=== PATIENT | female | born 1975 | race Caucasian/White ===

== ENCOUNTER 2017-10-05 09:45 | Emergency (ER) | payer BC ==
--- NOTE | 2017-10-05 11:10 | EDM.PDOC ---
ED HPI GENERAL MEDICAL PROBLEM - General Chief Complaint: Chest Pain Stated Complaint: CHEST PAIN Time Seen by Provider: 10/05/17 09:45 Source of Information: Reports: Patient, Family History Limitations: Reports: No Limitations - History of Present Illness INITIAL COMMENTS - FREE TEXT/NARRATIVE: 42 y.o.w.f with H/O intermittent SVT, DM, GERD, Obesity and Depression, came to the ed after she was treated at the clinic for her SVT. 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 Her palpitations subsided. No N /V/D or any other acute medical Issues. Pt converts to SVT twice a month, recently. No other acute medical issues at this time. BP 122/83 Pulse ox 99 % on RA, RR 20 Temp 36.8 PE: WNWD W F C/O minor CP 4/10 No N/V/ no diaphoresis CXR: Onset: Today Onset Date: 10/05/17 Onset Time: 07:00 Duration: Hour(s):, Intermittent Location: Reports: Chest Quality: Reports: Ache Severity: Mild Improves with: Reports: Medication (adenosin) Worsens with: Reports: None Treatments SPEECH COMMUNICATION PROFESSOR: Reports: EKG, Other Medication(s) Midsternal chest Pain Score (Numeric/FACES): 2 - Related Data Allergies Allergy/AdvReac Type Severity Reaction Status Date / Time latex Allergy Rash Verified 10/06/17 16:41 Home Meds: Home Meds FLUoxetine [PROzac] 10 mg PO DAILY 10/05/17 [History] Liraglutide [Victoza] 1.8 units SQ DAILY 10/05/17 [History] Metoprolol Succinate [Toprol XL] 25 mg PO DAILY #7 tab.er 10/05/17 [Rx] Omeprazole [Omeprazole] 20 mg DAILY 10/05/17 [History] Past Medical History Cardiovascular History: Reports: Arrhythmia Gastrointestinal History: Reports: None Genitourinary History: Reports: None 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: Musculoskeletal History: Reports: None Psychiatric History: Reports: Depression Endocrine/Metabolic History: Reports: Diabetes, Type II, Obesity/BMI 30+ - Infectious Disease History Infectious Disease History: Reports: Chicken Pox - Past Surgical History HEENT Surgical History: Reports: Adenoidectomy, Tonsillectomy GI Surgical History: Reports: None Female Surgical History: Reports: Hysterectomy, Other (See Below) Other Female Surgeries/Procedures: ablasion Musculoskeletal Surgical History: Reports: Carpal Tunnel Other Musculoskeletal Surgeries/Procedures:: bilat carpal tunnel Social & Family History - Family History Family Medical History: Noncontributory - Tobacco Use Smoking Status *Q: Current Every Day Smoker Years of Tobacco use: 30 Packs/Tins Daily: 1 - Caffeine Use Caffeine Use: Reports: None - Recreational Drug Use Recreational Drug Use: No ED ROS GENERAL - Review of Systems Review Of Systems: See Below Constitutional: Reports: No Symptoms HEENT: Reports: No Symptoms Respiratory: Reports: No Symptoms Cardiovascular: Reports: Palpitations Endocrine: Reports: No Symptoms GI/Abdominal: Reports: No Symptoms : Reports: No Symptoms Musculoskeletal: Reports: No Symptoms Skin: Reports: No Symptoms Neurological: Reports: No Symptoms Psychiatric: Reports: No Symptoms Hematologic/Lymphatic: Reports: No Symptoms Immunologic: Reports: No Symptoms ED EXAM, GENERAL - Physical Exam Exam: See Below Exam Limited By: No Limitations General Appearance: Alert, WD/WN, No Apparent Distress Eye Exam: Bilateral Eye: Normal Inspection Ears: Normal External Exam Ear Exam: Bilateral Ear: Auricle Normal Nose: Normal Inspection, Normal Mucosa Throat/Mouth: Normal Inspection, Normal Lips, Normal Teeth Head: Atraumatic, Normocephalic Neck: Normal Inspection, Supple, Non-Tender Respiratory/Chest: No Respiratory Distress Cardiovascular: Tachycardia (resolved SPEECH COMMUNICATION PROFESSOR) Peripheral Pulses: 1+: Brachial (L) GI/Abdominal: Normal Bowel Sounds, Soft, Non-Tender, No Organomegaly, No Distention, No Abnormal Bruit, No Mass, Pelvis Stable (Female) Exam: Deferred Rectal (Female) Exam: Deferred Back Exam: Normal Inspection, Full Range of Motion Extremities: Normal Inspection, Normal Range of Motion, Non-Tender, No Pedal Edema Neurological: Alert, Oriented, CN II-XII Intact, Normal Cognition, Normal Gait Psychiatric: Normal Affect Skin Exam: Warm, Dry, Intact, Normal Color, No Rash Lymphatic: No Adenopathy EKG INTERPRETATION EKG Date: 10/05/17 Time: 09:50 Rhythm: NSR Rate (Beats/Min): 99 [place]: Normal P-Wave: Present QRS: Normal ST-T: Normal QT: Normal Comparison: NA - No Prior EKG Course - Vital Signs Text/Narrative:: 42 y.o.w.f with H/O intermittent SVT, DM, GERD, Obesity and Depression, came to the ed after she was treated at the clinic for her SVT. 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 Her palpitations subsided. No N /V/D or any other acute medical Issues. Pt converts to SVT twice a month, recently. No other acute medical issues at this time. BP 122/83 Pulse ox 99 % on RA, RR 20 Temp 36.8 PE: Obese 42 y.o.w. f. in NAD Labs: CBC, BMP trop, nl Impression: Palpitations due to Paroxysmal SVT 11.[address] King. 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 Tx: Toprol 25mg XL deu to pts; borderline loiw BP. Reexam: improved. Plan: D/C with instructions Last Recorded V/S: Last Vital Signs Temp 36.8 C 10/05/17 09:45 Pulse 83 10/05/17 12:10 Resp 20 10/05/17 09:45 BP 106/77 10/05/17 12:10 Pulse Ox 99 10/05/17 09:45 - Orders/Labs/Meds Labs: Laboratory Tests 10/05/17 10/05/17 10/05/17 Range/Units 09:55 09:55 09:55 WBC 10.2 (4.5-12.0) X10-3/uL RBC 5.40 H (3.23-5.20) x10(6)uL Hgb 15.7 H (11.5-15.5) g/dL Hct 47.0 (30.0-51.3) % MCV 87.1 (80-96) fL MCH 29.1 (27.7-33.6) pg MCHC 33.5 (32.2-35.4) g/dL RDW 13.3 (11.5-15.5) % Plt Count 222 (125-369) X10(3)uL MPV 9.7 (7.4-10.4) fL Neut % (Auto) 74.4 (46-82) % Lymph % (Auto) 18.8 (13-37) % [place] % (Auto) 4.8 (4-12) % Eos % (Auto) 1 (1.0-5.0) % Baso % (Auto) 1 (0-2) % Neut # (Auto) 7.6 (1.6-8.3) # Lymph # (Auto) 1.9 (0.6-5.0) # [place] # (Auto) 0.5 (0.0-1.3) # Eos # (Auto) 0.1 (0.0-0.8) # Baso # (Auto) 0.1 (0.0-0.2) # PT 10.1 (8.7-11.1) INR 1.00 (0.89-1.13) Sodium 135 (135-145) mmol/L Potassium 5.1 (3.5-5.3) mmol/L Chloride 101 (100-110) mmol/L Carbon Dioxide 27 (21-32) mmol/L BUN 14 (7-18) mg/dL Creatinine 1.0 (0.55-1.02) mg/dL Est Cr Clr Drug Dosing 64.60 mL/min Estimated GFR (MDRD) > 60 (>60) BUN/Creatinine Ratio 14.0 (9-20) Glucose 332 H (80-116) mg/dL Calcium 9.2 (8.6-10.2) mg/dL Magnesium 1.9 (1.8-2.5) mg/dL Creatine Kinase 59 L (60-160) IU/L Troponin I (<0.017-0.056) ng/mL TSH, Ultra Sensitive (0.36-3.74) IU/mL 10/05/17 10/05/17 Range/Units 09:55 09:55 WBC (4.5-12.0) X10-3/uL RBC (3.23-5.20) x10(6)uL Hgb (11.5-15.5) g/dL Hct (30.0-51.3) % MCV (80-96) fL MCH (27.7-33.6) pg MCHC (32.2-35.4) g/dL RDW (11.5-15.5) % Plt Count (125-369) X10(3)uL MPV (7.4-10.4) fL Neut % (Auto) (46-82) % Lymph % (Auto) (13-37) % [place] % (Auto) (4-12) % Eos % (Auto) (1.0-5.0) % Baso % (Auto) (0-2) % Neut # (Auto) (1.6-8.3) # Lymph # (Auto) (0.6-5.0) # [place] # (Auto) (0.0-1.3) # Eos # (Auto) (0.0-0.8) # Baso # (Auto) (0.0-0.2) # PT (8.7-11.1) INR (0.89-1.13) Sodium (135-145) mmol/L Potassium (3.5-5.3) mmol/L Chloride (100-110) mmol/L Carbon Dioxide (21-32) mmol/L BUN (7-18) mg/dL Creatinine (0.55-1.02) mg/dL Est Cr Clr Drug Dosing mL/min Estimated GFR (MDRD) (>60) BUN/Creatinine Ratio (9-20) Glucose (80-116) mg/dL Calcium (8.6-10.2) mg/dL Magnesium (1.8-2.5) mg/dL Creatine Kinase (60-160) IU/L Troponin I < 0.017 L (<0.017-0.056) ng/mL TSH, Ultra Sensitive 1.80 (0.36-3.74) IU/mL Meds: Medications Discontinued Medications Generic Name Dose Route Start Last Admin Trade Name Freq PRN Reason Stop Dose Admin Aspirin 324 mg 10/05/17 11:34 10/05/17 11:15 Aspirin PO 10/05/17 11:35 324 mg ONETIME ONE Administration Metoprolol Succinate 50 mg 10/05/17 11:51 10/05/17 12:36 Toprol Xl PO 10/05/17 11:52 Not Given ONETIME ONE Metoprolol Succinate 25 mg 10/05/17 12:06 10/05/17 12:10 Toprol Xl PO 10/05/17 12:07 25 mg ONETIME ONE Administration Departure - Departure Time of Disposition: 13:11 Disposition: Home, Self-Care 01 Condition: Good Clinical Impression: History of paroxysmal supraventricular tachycardia Prescriptions: Metoprolol Succinate [Toprol XL] 25 mg PO DAILY #7 tab.er Instructions: Supraventricular Tachycardia, Adult, [id number], Metoprolol extended-release tablets Referrals: Natalie Sullivan NP [Primary Care Provider] - Forms: ED Department Discharge, ED Return to Work/School Form Additional Instructions: Please take the meds as recommended, Please F/U with an proof machine operator, Dr. King at [phone], please come back to the ED if your symptoms get worse acutely.
[2017-10-05] MEDS ORDERED: Aspirin 81 MG Tab.Chew PO ONE (11:34)
[2017-10-05] MEDS ORDERED: Metoprolol Succinate 50 MG Tab.ER PO ONE (11:51)
[2017-10-05] MEDS ORDERED: Metoprolol Succinate 25 MG Tab.ER PO ONE (12:06)
== END 2017-10-05 13:22 | disposition home or self-care (01) ==
LOC: FB.ED 09:45
DX: I47.1 Supraventricular tachycardia (principal); E11.9 Type 2 diabetes mellitus without complications; E66.9 Obesity, unspecified; F32.9 Major depressive disorder, single episode, unspecified; Z79.899 Other long term (current) drug therapy; F17.210 Nicotine dependence, cigarettes, uncomplicated; Z91.040 Latex allergy status
CPT/HCPCS: 36415; 80048; 82550; 83735; 84443; 84484; 85025; 85610; 93005; 99285; A9270

== ENCOUNTER 2017-10-06 14:43 | Emergency (ER) | payer BC ==
[2017-10-06] MEDS ORDERED: Metoprolol Succinate 25 MG Tab.ER PO ONE (15:04)
[2017-10-06] MEDS ORDERED: Aspirin 81 MG Tab.Chew PO ONE (15:04)
--- NOTE | 2017-10-06 16:17 | EDM.PDOC ---
ED HPI GENERAL MEDICAL PROBLEM - General Chief Complaint: Chest Pain Stated Complaint: CHEST PAIN Time Seen by Provider: 10/06/17 14:43 Source of Information: Reports: Patient, Family History Limitations: Reports: No Limitations - History of Present Illness INITIAL COMMENTS - FREE TEXT/NARRATIVE: 42 y.o.w.f with a h/o SVT, seen and evaluated by me yesterday, was d/c'd on Toprol 25 mg daily. Pt is on Prozac-She came to the ed this am due to mild chest discomfort 11/22. no N/V/D. Pt has NIDDM. No diaphoresis, no other acute medical issues. BP 132/72 pulse 78 RR 19 Pulse ox 98% on RA temp 36.6 Onset Date: 10/06/17 Onset Time: 08:00 Duration: Hour(s): Location: Reports: Chest Quality: Reports: Burning Severity: Mild Improves with: Reports: None Worsens with: Reports: None Associated Symptoms: Reports: No Other Symptoms Chest Pain Score (Numeric/FACES): 4 - Related Data Allergies Allergy/AdvReac Type Severity Reaction Status Date / Time latex Allergy Rash Verified 10/06/17 16:41 Home Meds: Home Meds FLUoxetine [PROzac] 10 mg PO DAILY 10/05/17 [History] Liraglutide [Victoza] 1.8 units SQ DAILY 10/05/17 [History] Metoprolol Succinate [Toprol XL] 25 mg PO DAILY #7 tab.er 10/05/17 [Rx] Omeprazole [Omeprazole] 20 mg DAILY 10/05/17 [History] Past Medical History Cardiovascular History: Reports: Arrhythmia Gastrointestinal History: Reports: None Genitourinary History: Reports: None 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: Musculoskeletal History: Reports: None Psychiatric History: Reports: Depression Endocrine/Metabolic History: Reports: Diabetes, Type II, Obesity/BMI 30+ - Infectious Disease History Infectious Disease History: Reports: Chicken Pox - Past Surgical History HEENT Surgical History: Reports: Adenoidectomy, Tonsillectomy GI Surgical History: Reports: None Female Surgical History: Reports: Hysterectomy, Other (See Below) Other Female Surgeries/Procedures: ablasion Musculoskeletal Surgical History: Reports: Carpal Tunnel Other Musculoskeletal Surgeries/Procedures:: bilat carpal tunnel Social & Family History - Family History Family Medical History: Noncontributory - Tobacco Use Smoking Status *Q: Current Every Day Smoker Years of Tobacco use: 30 Packs/Tins Daily: 1 - Caffeine Use Caffeine Use: Reports: None - Recreational Drug Use Recreational Drug Use: No ED ROS GENERAL - Review of Systems Review Of Systems: See Below Constitutional: Reports: No Symptoms HEENT: Reports: No Symptoms Respiratory: Reports: No Symptoms Cardiovascular: Reports: Chest Pain (11/22) Endocrine: Reports: Other (H/O DM) GI/Abdominal: Reports: No Symptoms : Reports: No Symptoms Musculoskeletal: Reports: No Symptoms Skin: Reports: No Symptoms Neurological: Reports: No Symptoms Psychiatric: Reports: No Symptoms Hematologic/Lymphatic: Reports: No Symptoms Immunologic: Reports: No Symptoms ED EXAM, GENERAL - Physical Exam Exam: See Below Exam Limited By: No Limitations General Appearance: Alert, WD/WN, No Apparent Distress Eye Exam: Bilateral Eye: Normal Inspection Ears: Normal External Exam Ear Exam: Bilateral Ear: Auricle Normal Nose: Normal Inspection, Normal Mucosa Throat/Mouth: Normal Inspection, Normal Lips Head: Atraumatic, Normocephalic Neck: Normal Inspection, Supple, Non-Tender Respiratory/Chest: No Respiratory Distress, Lungs Clear, Normal Breath Sounds Cardiovascular: Normal Peripheral Pulses, Regular Rate, Rhythm, No Edema GI/Abdominal: Normal Bowel Sounds, Soft, Non-Tender, No Organomegaly, No Abnormal Bruit (Female) Exam: Deferred Rectal (Female) Exam: Deferred Back Exam: Normal Inspection, Full Range of Motion Extremities: Normal Inspection, Normal Range of Motion Neurological: Alert, Oriented, CN II-XII Intact, Normal Cognition, Normal Gait Psychiatric: Normal Affect, Normal Mood Skin Exam: Warm, Dry, Intact, Normal Color, No Rash Lymphatic: No Adenopathy EKG INTERPRETATION EKG Date: 10/06/17 Time: 15:40 Rhythm: NSR Rate (Beats/Min): 72 [place]: Normal P-Wave: Present QRS: Normal ST-T: Normal QT: Normal Comparison: NA - No Prior EKG Course - Vital Signs Text/Narrative:: 42 y.o.w.f with a h/o SVT, seen and evaluated by me yesterday, was d/c'd on Toprol 25 mg daily. Pt is on Prozac-She came to the ed this am due to mild chest discomfort 11/22. no N/V/D. Pt has NIDDM. No diaphoresis, no other acute medical issues. BP 132/72 pulse 78 RR 19 Pulse ox 98% on RA temp 36.6 PE: WNWDWF, in NAD Labs: CBC, BMP Nl, Glc was 333 A1C was 8.3 Tropo 0.017 Impression: Poor diabetic control, Atypical chest pain, H/O SVT Tx: ASA Reexam: Pain subsided entirely. Pt was given 25 mg of Toprol instead of 50 mg because Prozac increases the effect of Toprol, as per pharmacy. Plan: D/C with instructions Last Recorded V/S: Last Vital Signs Temp 36.8 C 10/06/17 14:43 Pulse 78 10/06/17 14:43 Resp 18 10/06/17 14:43 BP 132/72 10/06/17 14:43 Pulse Ox 98 10/06/17 14:43 - Orders/Labs/Meds Orders: Active Orders 24 hr Category Date Time Status Chest 1V Frontal [CR] Stat Exams 10/06/17 15:04 Taken EKG 12 Lead [EK] Routine Ther 10/06/17 15:07 Ordered Labs: Laboratory Tests 10/06/17 10/06/17 10/06/17 Range/Units 15:15 15:15 15:15 WBC 9.3 (4.5-12.0) X10-3/uL RBC 5.01 (3.23-5.20) x10(6)uL Hgb 14.4 (11.5-15.5) g/dL Hct 43.9 (30.0-51.3) % MCV 87.5 (80-96) fL MCH 28.8 (27.7-33.6) pg MCHC 32.9 (32.2-35.4) g/dL RDW 13.4 (11.5-15.5) % Plt Count 215 (125-369) X10(3)uL MPV 9.2 (7.4-10.4) fL Neut % (Auto) 67.6 (46-82) % Lymph % (Auto) 25.0 (13-37) % [place] % (Auto) 5.6 (4-12) % Eos % (Auto) 1 (1.0-5.0) % Baso % (Auto) 1 (0-2) % Neut # (Auto) 6.3 (1.6-8.3) # Lymph # (Auto) 2.3 (0.6-5.0) # [place] # (Auto) 0.5 (0.0-1.3) # Eos # (Auto) 0.1 (0.0-0.8) # Baso # (Auto) 0.1 (0.0-0.2) # PT 10.0 (8.7-11.1) INR 0.99 (0.89-1.13) D-Dimer, Quantitative < 100 L (100-400) ng/mL Sodium (135-145) mmol/L Potassium (3.5-5.3) mmol/L Chloride (100-110) mmol/L Carbon Dioxide (21-32) mmol/L BUN (7-18) mg/dL Creatinine (0.55-1.02) mg/dL Est Cr Clr Drug Dosing Estimated GFR (MDRD) (>60) BUN/Creatinine Ratio (9-20) Glucose (80-116) mg/dL Hemoglobin A1c (4.5-6.2) % Calcium (8.6-10.2) mg/dL Troponin I (<0.017-0.056) ng/mL Urine Color (YELLOW) Urine Appearance (CLEAR) Urine pH (5.0-6.5) Ur Specific [place] (1.010-1.025) Urine Protein (NEGATIVE) mg/dL Urine Glucose (UA) (NEGATIVE) mg/dL Urine Ketones (NEGATIVE) mg/dL Urine Occult Blood (NEGATIVE) Urine Nitrite (NEGATIVE) Urine Bilirubin (NEGATIVE) Urine Urobilinogen (NEGATIVE) mg/dL Ur Leukocyte Esterase (NEGATIVE) Urine RBC (0) Urine WBC (0) Ur Squamous Epith Cells (NS,R,O) Urine Bacteria (NS) 10/06/17 10/06/17 10/06/17 Range/Units 15:15 15:15 15:15 WBC (4.5-12.0) X10-3/uL RBC (3.23-5.20) x10(6)uL Hgb (11.5-15.5) g/dL Hct (30.0-51.3) % MCV (80-96) fL MCH (27.7-33.6) pg MCHC (32.2-35.4) g/dL RDW (11.5-15.5) % Plt Count (125-369) X10(3)uL MPV (7.4-10.4) fL Neut % (Auto) (46-82) % Lymph % (Auto) (13-37) % [place] % (Auto) (4-12) % Eos % (Auto) (1.0-5.0) % Baso % (Auto) (0-2) % Neut # (Auto) (1.6-8.3) # Lymph # (Auto) (0.6-5.0) # [place] # (Auto) (0.0-1.3) # Eos # (Auto) (0.0-0.8) # Baso # (Auto) (0.0-0.2) # PT (8.7-11.1) INR (0.89-1.13) D-Dimer, Quantitative (100-400) ng/mL Sodium 135 (135-145) mmol/L Potassium 4.6 (3.5-5.3) mmol/L Chloride 101 (100-110) mmol/L Carbon Dioxide 29 (21-32) mmol/L BUN 15 (7-18) mg/dL Creatinine 1.0 (0.55-1.02) mg/dL Est Cr Clr Drug Dosing TNP Estimated GFR (MDRD) > 60 (>60) BUN/Creatinine Ratio 15.0 (9-20) Glucose 239 H D (80-116) mg/dL Hemoglobin A1c 8.3 H (4.5-6.2) % Calcium 9.3 (8.6-10.2) mg/dL Troponin I < 0.017 L (<0.017-0.056) ng/mL Urine Color (YELLOW) Urine Appearance (CLEAR) Urine pH (5.0-6.5) Ur Specific [place] (1.010-1.025) Urine Protein (NEGATIVE) mg/dL Urine Glucose (UA) (NEGATIVE) mg/dL Urine Ketones (NEGATIVE) mg/dL Urine Occult Blood (NEGATIVE) Urine Nitrite (NEGATIVE) Urine Bilirubin (NEGATIVE) Urine Urobilinogen (NEGATIVE) mg/dL Ur Leukocyte Esterase (NEGATIVE) Urine RBC (0) Urine WBC (0) Ur Squamous Epith Cells (NS,R,O) Urine Bacteria (NS) 10/06/17 Range/Units 16:49 WBC (4.5-12.0) X10-3/uL RBC (3.23-5.20) x10(6)uL Hgb (11.5-15.5) g/dL Hct (30.0-51.3) % MCV (80-96) fL MCH (27.7-33.6) pg MCHC (32.2-35.4) g/dL RDW (11.5-15.5) % Plt Count (125-369) X10(3)uL MPV (7.4-10.4) fL Neut % (Auto) (46-82) % Lymph % (Auto) (13-37) % [place] % (Auto) (4-12) % Eos % (Auto) (1.0-5.0) % Baso % (Auto) (0-2) % Neut # (Auto) (1.6-8.3) # Lymph # (Auto) (0.6-5.0) # [place] # (Auto) (0.0-1.3) # Eos # (Auto) (0.0-0.8) # Baso # (Auto) (0.0-0.2) # PT (8.7-11.1) INR (0.89-1.13) D-Dimer, Quantitative (100-400) ng/mL Sodium (135-145) mmol/L Potassium (3.5-5.3) mmol/L Chloride (100-110) mmol/L Carbon Dioxide (21-32) mmol/L BUN (7-18) mg/dL Creatinine (0.55-1.02) mg/dL Est Cr Clr Drug Dosing Estimated GFR (MDRD) (>60) BUN/Creatinine Ratio (9-20) Glucose (80-116) mg/dL Hemoglobin A1c (4.5-6.2) % Calcium (8.6-10.2) mg/dL Troponin I (<0.017-0.056) ng/mL Urine Color Yellow (YELLOW) Urine Appearance Clear (CLEAR) Urine pH 5.0 (5.0-6.5) Ur Specific [place] 1.020 (1.010-1.025) Urine Protein Negative (NEGATIVE) mg/dL Urine Glucose (UA) Normal (NEGATIVE) mg/dL Urine Ketones Negative (NEGATIVE) mg/dL Urine Occult Blood Negative (NEGATIVE) Urine Nitrite Negative (NEGATIVE) Urine Bilirubin Negative (NEGATIVE) Urine Urobilinogen Normal (NEGATIVE) mg/dL Ur Leukocyte Esterase Negative (NEGATIVE) Urine RBC 0-5 (0) Urine WBC 0-5 (0) Ur Squamous Epith Cells Moderate H (NS,R,O) Urine Bacteria Moderate H (NS) Meds: Medications Discontinued Medications Generic Name Dose Route Start Last Admin Trade Name Rashard PRN Reason Stop Dose Admin Aspirin 324 mg 10/06/17 15:04 10/06/17 15:12 Aspirin PO 10/06/17 15:05 324 mg ONETIME ONE Administration Metoprolol Succinate 25 mg 10/06/17 15:04 10/06/17 15:48 Toprol Xl PO 10/06/17 15:05 Not Given ONETIME ONE Departure - Departure Time of Disposition: 16:15 Disposition: Home, Self-Care 01 Condition: Good Clinical Impression: Atypical chest pain, Diabetes, Elevated hemoglobin A1c measurement Instructions: Nonspecific Chest Pain, [id number] Referrals: Natalie Sullivan NP [Primary Care Provider] - Forms: ED Department Discharge Additional Instructions: Please cont your meds, please follow up with your regular MD/Manager Cash/ manager in training as recommended, please come back if your symptoms get worse acutely - My Orders Last 24 Hours: My Active Orders 10/06/17 15:04 Chest 1V Frontal [CR] Stat 10/06/17 15:07 EKG 12 Lead [EK] Routine - Assessment/Plan Last 24 Hours: My Active Orders 10/06/17 15:04 Chest 1V Frontal [CR] Stat 10/06/17 15:07 EKG 12 Lead [EK] Routine
--- NOTE | 2017-10-07 13:00 | CR ---
INDICATION: Chest pain. CHEST: A single AP upright portable view of the chest was obtained. The heart did not appear enlarged, allowing for the relatively poor inspiration and AP positioning. Evidence of exogenous obesity is noted. The left breast is not well visualized. An active infiltrate or effusion was not identified. Overlying EKG leads are noted. IMPRESSION: No definite acute process. MTDD
== END 2017-10-06 16:53 | disposition home or self-care (01) ==
LOC: FB.ED 14:43
DX: R07.89 Other chest pain (principal); E11.65 Type 2 diabetes mellitus with hyperglycemia; F17.210 Nicotine dependence, cigarettes, uncomplicated; Z91.040 Latex allergy status; Z79.899 Other long term (current) drug therapy; Z86.79 Personal history of other diseases of the circulatory system
CPT/HCPCS: 36415; 71045; 80048; 81001; 83036; 84484; 85025; 85379; 85610; 93005; 99285; A9270

== ENCOUNTER 2017-11-05 20:36 | Emergency (ER) | payer BC ==
[2017-11-05] MEDS ORDERED: Cyclobenzaprine 10 MG Tab PO ONE (20:58)
[2017-11-05] MEDS ORDERED: traMADol 50 MG Tab PO ONE (21:06)
--- NOTE | 2017-11-05 21:36 | ER ---
DATE SEEN: 11/05/2017 CHIEF COMPLAINT: Pain jaw. HISTORY OF PRESENT ILLNESS: This is a 42-year-old complaining of pain in the left jaw. The pain is moderate to severe, started this morning insidiously and it is a sharp lancinating pain that sends shocks down to the head and to the teeth. It was made worse with any chewing or swallowing and there is no visual disturbance or headache. PAST MEDICAL HISTORY: Anxiety, atypical chest pain, SVT. SOCIAL HISTORY: Noncontributory. CURRENT MEDICATIONS: Reviewed. PHYSICAL EXAMINATION: VITAL SIGNS: Blood pressure is normal. Pulse is 97 and oxygenation 99%. EARS, NOSE, and THROAT: Negative. HEAD: Normal size. There is tenderness in the left TMJ and left sabianist. CARDIOVASCULAR: Normal. NECK: Supple. IMPRESSION: Trigeminal neuralgia. PLAN: Hydrocodone one tablet t.i.d. p.r.n. and Flexeril 10 mg at bedtime. Differential diagnosis, TMJ dysfunction. Follow up Tuesday with PCP. Return to the ED with worsening symptoms. TIME SEEN: 2044 hours. /[id number] JAVIER/PRINCEL
== END 2017-11-05 21:05 | disposition home or self-care (01) ==
LOC: FB.ED 20:36
DX: G50.0 Trigeminal neuralgia (principal)
CPT/HCPCS: 99283; A9270-GY

== ENCOUNTER 2018-01-18 10:42 | Emergency (ER) | payer BC ==
[2018-01-18] MEDS: Sodium Chloride 0.9% 10 ML Syringe FLUSH PRN (11:40)
[2018-01-18] MEDS: Sodium Chloride 0.9% 1,000 ML IV ONE (11:45)
--- NOTE | 2018-01-18 11:59 | EDM.PDOC ---
ED HPI GENERAL MEDICAL PROBLEM - General Chief Complaint: Cardiovascular Problem Stated Complaint: HEART Time Seen by Provider: 01/18/18 10:45 Source of Information: Reports: Patient History Limitations: Reports: No Limitations - History of Present Illness INITIAL COMMENTS - FREE TEXT/NARRATIVE: c/o palpitations pt with HR [address] Bloom's office 10/30, dx with SVT, given IV med in office and "my heart stopped and restarted," begun on metoprolol which "makes me very tired," takes 25 mg qhs, still feels tired when she takes it still having palpitations, mainly at night, of a few minutes duration, had lasted up to 2h prior to beginning metoprolol and had an episode of 6-7h before being given adenosine 10/30 did not sleep well last, up to let out dogs and to use bathroom, only had 4h of sleep up at 6a to go to work at [employer], sitting at her desk at 9a when she had palpitations, lightheaded, no CP, unable to feel her pulse, after 1h she coughing on arriving at ED and it went away begun on Alicia-D and no atbx 2d ago for sinus congestion, still have green nasal d/c 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, not seen funeral limousine driver previously smokes 1 ppd, h/o DM x 5y, A1C 7.1 from 5d ago 4m ago labs were neg for CBC, BMP, INR, D-dimer, TSH, trop, CxR 1v EKG today with SR 79 and IVCD with QRS 115, no ST change, unchanged from previous - Related Data Allergies Allergy/AdvReac Type Severity Reaction Status Date / Time latex Allergy Rash Verified 01/18/18 11:15 Home Meds: Home Meds FLUoxetine [PROzac] 10 mg PO DAILY 10/05/17 [History] Liraglutide [Victoza] 1.8 units SQ DAILY 10/05/17 [History] Metoprolol Succinate [Toprol XL] 25 mg PO DAILY #7 tab.er 10/05/17 [Rx] Omeprazole 20 mg DAILY 10/05/17 [History] Amoxicillin 500 mg PO TID #21 tab 01/18/18 [Rx] Loratadine 10 mg PO DAILY #30 tablet 01/18/18 [Rx] carBAMazepine [Carbamazepine] 200 mg PO BID 01/18/18 [History] glipiZIDE [Glipizide ER] 5 mg PO DAILY 01/18/18 [History] predniSONE 20 mg PO DAILY #9 tab 01/18/18 [Rx] Past Medical History Cardiovascular History: Reports: Arrhythmia Gastrointestinal History: Reports: None Genitourinary History: Reports: None [facility] History: Reports: Musculoskeletal History: Reports: None Psychiatric History: Reports: Depression Endocrine/Metabolic History: Reports: Diabetes, Type II, Obesity/BMI 30+ - Infectious Disease History Infectious Disease History: Reports: Chicken Pox - Past Surgical History HEENT Surgical History: Reports: Adenoidectomy, Tonsillectomy GI Surgical History: Reports: None Female Surgical History: Reports: Hysterectomy, Other (See Below) Other Female Surgeries/Procedures: ablasion Musculoskeletal Surgical History: Reports: Carpal Tunnel, Other (See Below) Other Musculoskeletal Surgeries/Procedures:: bilat carpal tunnel Social & Family History - Family History Family Medical History: Noncontributory - Caffeine Use Caffeine Use: Reports: None ED ROS GENERAL - Review of Systems Review Of Systems: See Below Constitutional: Reports: No Symptoms HEENT: Reports: No Symptoms Respiratory: Reports: No Symptoms. Denies: Shortness of Breath Cardiovascular: Reports: Lightheadedness, Palpitations. Denies: Chest Pain Endocrine: Reports: No Symptoms GI/Abdominal: Reports: No Symptoms : Reports: No Symptoms Musculoskeletal: Reports: No Symptoms Skin: Reports: No Symptoms Neurological: Reports: No Symptoms Psychiatric: Reports: No Symptoms Hematologic/Lymphatic: Reports: No Symptoms Immunologic: Reports: No Symptoms ED EXAM, GENERAL - Physical Exam Exam: See Below Exam Limited By: No Limitations General Appearance: Alert, WD/WN, No Apparent Distress, Other (alert, somewhat fatigued, nontoxic, cooperative) Eye Exam: Bilateral Eye: Normal Inspection Ears: Normal External Exam, Hearing Grossly Normal Nose: Normal Inspection, Normal Mucosa, No Blood, Other (no swell, no d/c) Throat/Mouth: Normal Inspection, Normal Lips, Normal Teeth, Normal Gums, Normal Oropharynx, Normal Voice, No Airway Compromise Head: Atraumatic, Normocephalic Neck: Normal Inspection, Supple, Non-Tender, Full Range of Motion Respiratory/Chest: No Respiratory Distress, Lungs Clear, Normal Breath Sounds, No Accessory Muscle Use, Chest Non-Tender Cardiovascular: Regular Rate, Rhythm, No Edema, No Gallop, No JVD, No Murmur, No Rub GI/Abdominal: Soft, Non-Tender, No Distention, Other (obese) Back Exam: Normal Inspection, Full Range of Motion, NT Extremities: Normal Inspection, Normal Range of Motion, Non-Tender, No Pedal Edema Neurological: Alert, Oriented, CN II-XII Intact, Normal Cognition, No Motor/ Sensory Deficits Psychiatric: Normal Affect Skin Exam: Warm, Dry, Intact, Normal Color, No Rash Lymphatic: No Adenopathy Course - Vital Signs Last Recorded V/S: Last Vital Signs Temp Pulse 89 01/18/18 10:45 Resp 20 01/18/18 10:45 BP 104/59 L 01/18/18 10:45 Pulse Ox 98 01/18/18 10:45 - Orders/Labs/Meds Orders: Active Orders 24 hr Category Date Time Status URINALYSIS W/MICROSCOPIC [UA W/MICROSCOPIC] [URIN] Stat Lab 01/18/18 11:25 Ordered Sodium Chloride 0.9% [Saline Flush] Med 01/18/18 11:54 Active 10 ml FLUSH ASDIRECTED PRN Peripheral IV Insertion Adult [OM.PC] Routine Oth 01/18/18 11:40 Ordered EKG 12 Lead [EK] Routine Ther 01/18/18 11:15 Ordered Medication Orders Sodium Chloride (Saline Flush) 10 ml FLUSH ASDIRECTED PRN PRN Reason: Keep Vein Open Last Admin: 01/18/18 11:40 Dose: 10 ml Labs: Laboratory Tests 01/18/18 01/18/18 01/18/18 Range/Units 11:25 11:30 11:30 WBC 10.0 (4.5-12.0) X10-3/uL RBC 5.03 (3.23-5.20) x10(6)uL Hgb 15.5 (11.5-15.5) g/dL Hct 45.7 (30.0-51.3) % MCV 90.7 (80-96) fL MCH 30.7 (27.7-33.6) pg MCHC 33.9 (32.2-35.4) g/dL RDW 13.5 (11.5-15.5) % Plt Count 192 (125-369) X10(3)uL MPV 9.2 (7.4-10.4) fL Neut % (Auto) 76.0 (46-82) % Lymph % (Auto) 18.1 (13-37) % [place] % (Auto) 4.1 (4-12) % Eos % (Auto) 1 (1.0-5.0) % Baso % (Auto) 1 (0-2) % Neut # (Auto) 7.6 (1.6-8.3) # Lymph # (Auto) 1.8 (0.6-5.0) # [place] # (Auto) 0.4 (0.0-1.3) # Eos # (Auto) 0.1 (0.0-0.8) # Baso # (Auto) 0.1 (0.0-0.2) # Sodium 138 (135-145) mmol/L Potassium 4.2 (3.5-5.3) mmol/L Chloride 101 (100-110) mmol/L Carbon Dioxide 30 (21-32) mmol/L BUN 10 (7-18) mg/dL Creatinine 0.8 (0.55-1.02) mg/dL Est Cr Clr Drug Dosing 87.27 mL/min Estimated GFR (MDRD) > 60 (>60) BUN/Creatinine Ratio 12.5 (9-20) Glucose 189 H (80-116) mg/dL Calcium 9.0 (8.6-10.2) mg/dL Total Bilirubin 0.3 (0.1-1.3) mg/dL AST 19 (5-25) IU/L ALT 37 H (12-36) U/L Alkaline Phosphatase 69 (56-112) IU/L Troponin I (<0.017-0.056) ng/mL C-Reactive Protein (0.5-0.9) mg/dL NT-Pro-B Natriuret Pep (<=125) pg/mL Total Protein 7.6 (6.0-8.0) g/dL Albumin 3.8 (3.5-5.2) g/dL Globulin 3.8 g/dL Albumin/Globulin Ratio 1.0 Urine Color Yellow (YELLOW) Urine Appearance Slightly cloudy (CLEAR) Urine pH 6.0 (5.0-6.5) Ur Specific [place] 1.015 (1.010-1.025) Urine Protein Negative (NEGATIVE) mg/dL Urine Glucose (UA) Normal (NEGATIVE) mg/dL Urine Ketones Negative (NEGATIVE) mg/dL Urine Occult Blood Negative (NEGATIVE) Urine Nitrite Negative (NEGATIVE) Urine Bilirubin Negative (NEGATIVE) Urine Urobilinogen Normal (NEGATIVE) mg/dL Ur Leukocyte Esterase Negative (NEGATIVE) Urine WBC 0-5 (0) Ur Squamous Epith Cells Few H (NS,R,O) Urine Bacteria Few H (NS) 01/18/18 Range/Units 11:30 WBC (4.5-12.0) X10-3/uL RBC (3.23-5.20) x10(6)uL Hgb (11.5-15.5) g/dL Hct (30.0-51.3) % MCV (80-96) fL MCH (27.7-33.6) pg MCHC (32.2-35.4) g/dL RDW (11.5-15.5) % Plt Count (125-369) X10(3)uL MPV (7.4-10.4) fL Neut % (Auto) (46-82) % Lymph % (Auto) (13-37) % [place] % (Auto) (4-12) % Eos % (Auto) (1.0-5.0) % Baso % (Auto) (0-2) % Neut # (Auto) (1.6-8.3) # Lymph # (Auto) (0.6-5.0) # [place] # (Auto) (0.0-1.3) # Eos # (Auto) (0.0-0.8) # Baso # (Auto) (0.0-0.2) # Sodium (135-145) mmol/L Potassium (3.5-5.3) mmol/L Chloride (100-110) mmol/L Carbon Dioxide (21-32) mmol/L BUN (7-18) mg/dL Creatinine (0.55-1.02) mg/dL Est Cr Clr Drug Dosing mL/min Estimated GFR (MDRD) (>60) BUN/Creatinine Ratio (9-20) Glucose (80-116) mg/dL Calcium (8.6-10.2) mg/dL Total Bilirubin (0.1-1.3) mg/dL AST (5-25) IU/L ALT (12-36) U/L Alkaline Phosphatase (56-112) IU/L Troponin I < 0.017 L (<0.017-0.056) ng/mL C-Reactive Protein 2.1 H (0.5-0.9) mg/dL NT-Pro-B Natriuret Pep 144 H (<=125) pg/mL Total Protein (6.0-8.0) g/dL Albumin (3.5-5.2) g/dL Globulin g/dL Albumin/Globulin Ratio Urine Color (YELLOW) Urine Appearance (CLEAR) Urine pH (5.0-6.5) Ur Specific [place] (1.010-1.025) Urine Protein (NEGATIVE) mg/dL Urine Glucose (UA) (NEGATIVE) mg/dL Urine Ketones (NEGATIVE) mg/dL Urine Occult Blood (NEGATIVE) Urine Nitrite (NEGATIVE) Urine Bilirubin (NEGATIVE) Urine Urobilinogen (NEGATIVE) mg/dL Ur Leukocyte Esterase (NEGATIVE) Urine WBC (0) Ur Squamous Epith Cells (NS,R,O) Urine Bacteria (NS) Meds: Medications Generic Name Dose Route Start Last Admin Trade Name Freq PRN Reason Stop Dose Admin Sodium Chloride 10 ml 01/18/18 11:54 01/18/18 11:40 Saline Flush FLUSH 10 ml ASDIRECTED PRN Administration Keep Vein Open Discontinued Medications Generic Name Dose Route Start Last Admin Trade Name Freq PRN Reason Stop Dose Admin Sodium Chloride 1,000 mls @ 999 mls/hr 01/18/18 11:14 01/18/18 11:45 Normal Saline IV 01/18/18 12:14 999 mls/hr .BOLUS ONE Administration - Re-Assessments/Exams Free Text/Narrative Re-Assessment/Exam: 01/18/18 12:40 trop neg, BNP 144 and mildly inc'd CBC, CMP neg d/w Dr Bonilla who recommended increasing metoprolol by 25 mg if pt tolerates it , stopping Alicia-D and for pt to see CV next week as scheduled CRP 2.1 c/w sinusitis, will add amox and prednisone and change to loratadine 01/18/18 12:55 Departure - Departure Time of Disposition: 12:51 Disposition: Home, Self-Care 01 Condition: Good Clinical Impression: Paroxysmal supraventricular tachycardia, IVCD (intraventricular conduction defect), Elevated brain natriuretic peptide (BNP) level, Acute sinusitis, Current smoker, Type II diabetes mellitus, Increased body mass index (BMI) Prescriptions: Amoxicillin 500 mg PO TID #21 tab Loratadine 10 mg PO DAILY #30 tablet predniSONE 20 mg PO DAILY #9 tab Instructions: Supraventricular Tachycardia, Adult, Sinusitis, Adult, Coping with Quitting Smoking Referrals: Natalie Sullivan SALES REPRESENTATIVE SALES MANAGER [Primary Care Provider] - Forms: ED Department Discharge Additional Instructions: Stop the Alicia-D. For environmental allergies and nasal swelling, take loratadine 10 mg 1 tab daily for 7 days, longer if needed. For nasal swelling, take prednisone 20 mg 2 tabs daily for 2 days, then 1 tab daily for 5 days. For sinus infection, take amoxicillin 500 mg 1 tab 3 times a day for 7 days. Continue the metoprolol XL 25 mg 1 tab at bedtime. May increase to a second tab. Come to hospital at 10 AM in 2 days for echocardiogram. Keep your appointment with cardiology next week. Return to ED if you feel worse, develop new symptoms or have persisted SVT. - My Orders Last 24 Hours: My Active Orders 01/18/18 11:15 EKG 12 Lead [EK] Routine 01/18/18 11:25 URINALYSIS W/MICROSCOPIC [UA W/MICROSCOPIC] [URIN] Stat 01/18/18 11:40 Peripheral IV Insertion Adult [OM.PC] Routine 01/18/18 11:54 Sodium Chloride 0.9% [Saline Flush] 10 ml FLUSH ASDIRECTED PRN - Assessment/Plan Last 24 Hours: My Active Orders 01/18/18 11:15 EKG 12 Lead [EK] Routine 01/18/18 11:25 URINALYSIS W/MICROSCOPIC [UA W/MICROSCOPIC] [URIN] Stat 01/18/18 11:40 Peripheral IV Insertion Adult [OM.PC] Routine 01/18/18 11:54 Sodium Chloride 0.9% [Saline Flush] 10 ml FLUSH ASDIRECTED PRN
== END 2018-01-18 13:05 | disposition home or self-care (01) ==
LOC: FB.ED 10:42
DX: I47.1 Supraventricular tachycardia (principal); I45.9 Conduction disorder, unspecified; R79.89 Other specified abnormal findings of blood chemistry; F17.210 Nicotine dependence, cigarettes, uncomplicated; E66.9 Obesity, unspecified; E11.9 Type 2 diabetes mellitus without complications; Z91.040 Latex allergy status; Z79.899 Other long term (current) drug therapy
CPT/HCPCS: 36415; 80053; 81001; 83880; 84484; 85025; 86140; 93005; 96360; 99285; J7030; J7050

== ENCOUNTER 2018-12-27 21:26 | Emergency (ER) | payer BC ==
[2018-12-27] MEDS ORDERED: Ondansetron 4 MG Tab.DIS PO ONE (21:27)
--- NOTE | 2018-12-27 22:06 | EDM.PDOC ---
ED HPI GENERAL MEDICAL PROBLEM - General Chief Complaint: Gastrointestinal Problem Stated Complaint: ABD PAIN Time Seen by Provider: 12/27/18 21:50 Source of Information: Reports: Patient, Family, Old Records History Limitations: Reports: No Limitations - History of Present Illness INITIAL COMMENTS - FREE TEXT/NARRATIVE: Adelina comes into [facility] ED with a 3 week hx of nausea and vomiting. Sxs have waxed and waned, but seemed worse this evening while out wild asparagus hunting with her son. There is mild epigastric pain, without radiation, and no diarrhea or constipation. There is no food intolerance, hemetemisis, or back pain. She takes Prilosec daily for GERD. Her only abdominal procedure was a uterine ablation several years ago. She denies smoking, ETOH or substance abuse. She has tried no other meds. - Related Data Allergies Allergy/AdvReac Type Severity Reaction Status Date / Time latex Allergy Rash Verified 12/27/18 22:55 Home Meds: Home Meds FLUoxetine [PROzac] 10 mg PO DAILY 10/05/17 [History] Liraglutide [Victoza] 1.8 units SQ DAILY 10/05/17 [History] Metoprolol Succinate [Toprol XL] 25 mg PO DAILY #7 tab.er 10/05/17 [Rx] Omeprazole 20 mg DAILY 10/05/17 [History] carBAMazepine [Carbamazepine] 200 mg PO BID 01/18/18 [History] glipiZIDE [Glipizide ER] 5 mg PO DAILY 01/18/18 [History] Past Medical History Cardiovascular History: Reports: Arrhythmia Gastrointestinal History: Reports: GERD Genitourinary History: Reports: None [employer]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: Musculoskeletal History: Reports: None Psychiatric History: Reports: Depression Endocrine/Metabolic History: Reports: Diabetes, Type II, Obesity/BMI 30+ - Infectious Disease History Infectious Disease History: Reports: Chicken Pox - Past Surgical History HEENT Surgical History: Reports: Adenoidectomy, Tonsillectomy GI Surgical History: Reports: None Female Surgical History: Reports: Hysterectomy, Other (See Below) Other Female Surgeries/Procedures: ablasion Musculoskeletal Surgical History: Reports: Carpal Tunnel, Other (See Below) Other Musculoskeletal Surgeries/Procedures:: bilat carpal tunnel Social & Family History - Family History Family Medical History: Noncontributory - Caffeine Use Caffeine Use: Reports: None ED ROS GENERAL - Review of Systems Review Of Systems: See Below Constitutional: Reports: Malaise, Decreased Appetite HEENT: Reports: No Symptoms Respiratory: Reports: No Symptoms Cardiovascular: Reports: No Symptoms Endocrine: Reports: No Symptoms GI/Abdominal: Reports: Abdominal Pain, Decreased Appetite, Nausea, Vomiting : Reports: No Symptoms Musculoskeletal: Reports: No Symptoms Skin: Reports: No Symptoms Neurological: Reports: No Symptoms Psychiatric: Reports: No Symptoms Hematologic/Lymphatic: Reports: No Symptoms Immunologic: Reports: No Symptoms ED EXAM, GI/ABD - Physical Exam Exam: See Below Exam Limited By: No Limitations General Appearance: Alert, WD/WN, No Apparent Distress, Obese Eyes: Bilateral: Normal Appearance, EOMI Ears: Normal External Exam Nose: Normal Inspection Throat/Mouth: Normal Inspection, Normal Oropharynx Head: Normocephalic Neck: Normal Inspection, Supple, Non-Tender Respiratory/Chest: Lungs Clear, Normal Breath Sounds Cardiovascular: Normal Peripheral Pulses, Regular Rate, Rhythm, No Murmur GI/Abdominal Exam: Normal Bowel Sounds, Soft, No Organomegaly, No Distention, No Mass, Tender (mild epigastric tenderness) (Female) Exam: Deferred Rectal (Female) Exam: Deferred Back Exam: Normal Inspection Extremities: Normal Inspection Neurological: Alert, Oriented, CN II-XII Intact, Normal Cognition, Normal Gait, No Motor/Sensory Deficits Psychiatric: Normal Affect, Normal Mood Skin Exam: Warm, Dry, Intact, Normal Color, No Rash Lymphatic: No Adenopathy Course - Vital Signs Text/Narrative:: Screening labwork noted normal CBC, CMP with elevated BS baseline, and CRP 1.9 mildly elevated. I administered Zofran 4 mg ODT with some relief. Last Recorded V/S: Last Vital Signs Temp 36.6 C 12/27/18 21:35 Pulse 79 12/27/18 21:35 Resp 18 12/27/18 21:35 BP 114/82 12/27/18 21:35 Pulse Ox 92 L 12/27/18 21:35 - Orders/Labs/Meds Orders: Active Orders 24 hr Category Date Time Status URINALYSIS W/MICROSCOPIC [UA W/MICROSCOPIC] [URIN] Stat Lab 12/27/18 21:59 Ordered Labs: Laboratory Tests 12/27/18 12/27/18 12/27/18 Range/Units 22:08 22:08 22:08 WBC 11.3 (4.5-12.0) X10-3/uL RBC 5.07 (3.23-5.20) x10(6)uL Hgb 15.3 (11.5-15.5) g/dL Hct 45.9 (30.0-51.3) % MCV 90.5 (80-96) fL MCH 30.2 (27.7-33.6) pg MCHC 33.4 (32.2-35.4) g/dL RDW 13.0 (11.5-15.5) % Plt Count 210 (125-369) X10(3)uL MPV 9.3 (7.4-10.4) fL Neut % (Auto) 75.8 (46-82) % Lymph % (Auto) 16.8 (13-37) % [place] % (Auto) 4.6 (4-12) % Eos % (Auto) 1 (1.0-5.0) % Baso % (Auto) 2 (0-2) % Neut # (Auto) 8.6 H (1.6-8.3) # Lymph # (Auto) 1.9 (0.6-5.0) # [place] # (Auto) 0.5 (0.0-1.3) # Eos # (Auto) 0.1 (0.0-0.8) # Baso # (Auto) 0.2 (0.0-0.2) # Sodium 141 (135-145) mmol/L Potassium 4.1 (3.5-5.3) mmol/L Chloride 103 (100-110) mmol/L Carbon Dioxide 30 (21-32) mmol/L BUN 10 (7-18) mg/dL Creatinine 0.9 (0.55-1.02) mg/dL Est Cr Clr Drug Dosing TNP Estimated GFR (MDRD) > 60 (>60) BUN/Creatinine Ratio 11.1 (9-20) Glucose 178 H (80-116) mg/dL Calcium 9.5 (8.6-10.2) mg/dL Total Bilirubin 0.3 (0.1-1.3) mg/dL AST 23 D (5-25) IU/L ALT 51 H D (12-36) U/L Alkaline Phosphatase 68 (56-112) IU/L C-Reactive Protein 1.9 H (0.5-0.9) mg/dL Total Protein 7.3 (6.0-8.0) g/dL Albumin 3.8 (3.5-5.2) g/dL Globulin 3.5 g/dL Albumin/Globulin Ratio 1.1 Amylase 26 (25-115) U/L Meds: Medications Discontinued Medications Generic Name Dose Route Start Last Admin Trade Name Zacharyq PRN Reason Stop Dose Admin Ondansetron HCl 4 mg 12/27/18 22:00 12/27/18 22:10 Zofran Odt PO 12/27/18 22:01 4 mg ONETIME ONE Administration Departure - Departure Time of Disposition: 23:19 Disposition: Home, Self-Care 01 Condition: Fair Clinical Impression: Nausea & vomiting Qualifiers: Vomiting type: unspecified Vomiting Intractability: unspecified Qualified Code( s): R11.2 - Nausea with vomiting, unspecified - Discharge Information *PRESCRIPTION DRUG MONITORING PROGRAM REVIEWED*: Not Applicable *COPY OF PRESCRIPTION DRUG MONITORING REPORT IN PATIENT RACHEL: Not Applicable Referrals: Natalie Sullivan NP [Primary Care Provider] - Forms: ED Department Discharge - Problem List & Annotations (1) Nausea & vomiting SNOMED Code(s): 24598506 Code(s): R11.2 - NAUSEA WITH VOMITING, UNSPECIFIED Status: Acute Current Visit: Yes Annotation/Comment:: I dispensed Zofran 4 mg ODT taken every 8 hours, and suggested follow up with PCP in am for scheduling Abdominal US and further Gi work up. Qualifiers: Vomiting type: unspecified Vomiting Intractability: unspecified Qualified Code(s): R11.2 - Nausea with vomiting, unspecified - Problem List Review Problem List Initiated/Reviewed/Updated: Yes - My Orders Last 24 Hours: My Active Orders 12/27/18 21:59 URINALYSIS W/MICROSCOPIC [UA W/MICROSCOPIC] [URIN] Stat - Assessment/Plan Last 24 Hours: My Active Orders 12/27/18 21:59 URINALYSIS W/MICROSCOPIC [UA W/MICROSCOPIC] [URIN] Stat Plan: Follow up with PCP.
[2018-12-27] MEDS: Ondansetron 4 MG Tab.DIS PO ONE (22:10)
== END 2018-12-27 23:30 | disposition home or self-care (01) ==
LOC: FB.ED 21:26
DX: R11.2 Nausea with vomiting, unspecified (principal); K21.9 Gastro-esophageal reflux disease without esophagitis; E11.9 Type 2 diabetes mellitus without complications; F32.9 Major depressive disorder, single episode, unspecified; Z91.040 Latex allergy status; Z79.899 Other long term (current) drug therapy; Z79.84 Long term (current) use of oral hypoglycemic drugs
CPT/HCPCS: 36415; 80053; 81001; 82150; 85025; 86140; 99284; A9270

== ENCOUNTER 2021-01-25 17:48 | Emergency (ER) | payer BC ==
[2021-01-25] MEDS ORDERED: Erythromycin Base 0.5% Ophth Oint 3.5 GM Tube EYEBOTH ONE (17:49)
--- NOTE | 2021-01-25 18:17 | EDM.PDOC ---
ED HPI GENERAL MEDICAL PROBLEM - General Chief Complaint: Eye Problems Stated Complaint: POSSIBLE EYE INFECTION Time Seen by Provider: 01/25/21 18:16 Source of Information: Reports: Patient History Limitations: Reports: No Limitations - History of Present Illness INITIAL COMMENTS - FREE TEXT/NARRATIVE: 45-year-old female who reports that beginning about a week and a half ago she developed what she thought was a stye in her right eye. It is since resolved but then she developed one in her left eye and she continued to have problems that seemed to go from one eye to the next and then beginning about 2 days ago she developed pain and swelling along the medial aspect of her left eye and she has had intermittent swelling of both upper lids with redness of the area. There is been matting of the eyelids of the left eye. Her vision really has not changed. She does report some pain in the area that she rates as a 4/10. It feels very itchy as well. She has had no fevers or chills. There has been no nausea or vomiting. No weakness or dizziness. There are no other associated signs or symptoms. There are no other modifying factors. Onset: Other (Week and a half ago with symptoms that seem to be in both eyes and then 2 days ago worsening symptoms over the medial aspect of her left eye) Duration: Getting Worse Location: Reports: Face (Left eye) Quality: Reports: Sharp (Stinging but also itching) Severity: Mild (to moderate.) Improves with: Reports: None Worsens with: Reports: None Context: Reports: Other (As above.) Associated Symptoms: Reports: No Other Symptoms (Except as above.) Treatments SOLUTION MAKER: Reports: Other (see below) (Nothing.) Left Eye Pain Score (Numeric/FACES): 4 - Related Data Allergies Allergy/AdvReac Type Severity Reaction Status Date / Time latex Allergy Rash Verified 01/25/21 18:30 Home Meds: Home Meds FLUoxetine [PROzac] 10 mg PO DAILY 10/05/17 [History] Liraglutide [Victoza] 1.8 units SQ DAILY 10/05/17 [History] Metoprolol Succinate [Toprol XL] 25 mg PO DAILY #7 tab.er 10/05/17 [Rx] Omeprazole 20 mg PO DAILY 10/05/17 [History] carBAMazepine [Carbamazepine] 200 mg PO BID 01/18/18 [History] glipiZIDE [Glipizide ER] 5 mg PO DAILY 01/18/18 [History] Erythromycin Base [Erythromycin 0.5% Ophth Oint] 1 applic EYELF QID 5 Days #1 tube 01/25/21 [Rx] Fluconazole [Diflucan] 150 mg PO ASDIRECTED #2 tab 01/25/21 [Rx] cephALEXin [Keflex] 750 mg PO TID 7 Days #63 cap 01/25/21 [Rx] Past Medical History Cardiovascular History: Reports: Arrhythmia Gastrointestinal History: Reports: GERD Psychiatric History: Reports: Depression Endocrine/Metabolic History: Reports: Diabetes, Type II, Obesity/BMI 30+ - Infectious Disease History Infectious Disease History: Reports: Chicken Pox - Past Surgical History HEENT Surgical History: Reports: Adenoidectomy, Tonsillectomy Female Surgical History: Reports: Section, Hysterectomy, Other (See Below) Other Female Surgeries/Procedures: ablasion Musculoskeletal Surgical History: Reports: Carpal Tunnel, Other (See Below) Other Musculoskeletal Surgeries/Procedures:: bilat carpal tunnel Social & Family History - Tobacco Use Tobacco Use Status *Q: Current Every Day Tobacco User Years of Tobacco use: 33 Packs/Tins Daily: 1 - Caffeine Use Caffeine Use: Reports: Soda - Alcohol Use Alcohol Use History: No - Recreational Drug Use Recreational Drug Use: No - Living Situation & Occupation Living situation: Reports: ED ROS GENERAL - Review of Systems Review Of Systems: See Below Constitutional: Denies: Fever, Chills HEENT: Reports: Eye Discharge, Eye Pain. Denies: Vision Change Respiratory: Denies: Shortness of Breath, Cough Cardiovascular: Denies: Chest Pain, Lightheadedness Endocrine: Denies: High Glucose GI/Abdominal: Denies: Nausea, Vomiting : Denies: Dysuria, Pain Skin: Reports: Erythema (Of both). Denies: Rash Neurological: Denies: Dizziness, Headache Hematologic/Lymphatic: Denies: Easy Bleeding, Easy Bruising ED EXAM GENERAL W FULL EYE - Physical Exam Exam: See Below Exam Limited By: No Limitations General Appearance: Alert, WD/WN, No Apparent Distress Eye Exam: Left Eye: Conjunctival Injection, Bilateral Eye: EOMI, PERRL Eyelids: Left: Edema, Erythema Conjunctiva & Sclera: Left: Conjunctival Edema Extraocular Movements: Bilateral: Intact Pupillary Size: Bilateral: 3 mm Pupillary Reaction: Bilateral: Brisk Ears: Normal External Exam, Hearing Grossly Normal Nose: Normal Inspection, Normal Mucosa, No Blood Throat/Mouth: Normal Inspection, Normal Oropharynx, Normal Voice, No Airway Compromise Head: Atraumatic, Normocephalic Neck: Normal Inspection, Supple, Non-Tender, Full Range of Motion Respiratory/Chest: No Respiratory Distress, Lungs Clear, Normal Breath Sounds, No Accessory Muscle Use, Chest Non-Tender Cardiovascular: Normal Peripheral Pulses, Regular Rate, Rhythm, No Murmur GI/Abdominal: Normal Bowel Sounds, Soft, Non-Tender Back Exam: Normal Inspection Extremities: Normal Inspection, Normal Range of Motion, Non-Tender, No Pedal Edema, Normal Capillary Refill Neurological: Alert, Oriented, CN II-XII Intact, Normal Cognition, No Motor/Sensory Deficits Skin Exam: Warm, Dry, Intact, Normal Color, No Rash Course - Vital Signs Last Recorded V/S: Last Vital Signs Temp 36.7 C 01/25/21 18:00 Pulse 72 01/25/21 18:50 Resp 18 01/25/21 18:50 BP 115/57 L 01/25/21 18:50 Pulse Ox 94 L 01/25/21 18:50 - Orders/Labs/Meds Meds: Medications Discontinued Medications Generic Name Dose Route Start Last Admin Trade Name Rashard PRN Reason Stop Dose Admin Amoxicillin/Clavulanate Potassium 1 tab 01/25/21 18:39 01/25/21 18:45 Amoxicillin/Clavulanate K 875-125 Mg Tab PO 01/25/21 18:40 Not Given ONETIME ONE Cephalexin 750 mg 01/25/21 18:47 01/25/21 18:51 Cephalexin 250 Mg Cap PO 01/25/21 18:48 750 mg ONETIME ONE Administration Erythromycin 3.5 gm 01/25/21 17:49 Erythromycin Base 0.5% Ophth Oint 3.5 Gm Tube EYEBOTH 01/25/21 17:50 .STK-MED ONE - Re-Assessments/Exams Free Text/Narrative Re-Assessment/Exam: 01/25/21 18:30: Middle-aged female with what appears to be dacryocystitis or a hordoleum. I will treat the patient with erythromycin eye ointment and also Augmentin 875 mg. She is to apply warm compresses to the area. She was advised to follow-up with her eye doctor this coming week for recheck. Precautions and reasons for return to the emergency department were discussed with the patient will she was in the emergency department and were detailed in the patient's discharge instructions. Departure - Departure Time of Disposition: 18:40 Disposition: Home, Self-Care 01 Condition: Good Clinical Impression: Dacryocystitis of left lacrimal sac - Discharge Information Prescriptions: Fluconazole [Diflucan] 150 mg PO ASDIRECTED #2 tab Erythromycin Base [Erythromycin 0.5% Ophth Oint] 1 applic EYELF QID 5 Days #1 tube cephALEXin [Keflex] 750 mg PO TID 7 Days #63 cap Instructions: Dacryocystitis Referrals: Natalie Sullivan NP [Primary Care Provider] - Forms: ED Department Discharge Additional Instructions: You appear to have either an infection of your tear duct or a hordeolum (which is a collection of secretions from your eye glands with an associated infection). You need to apply warm compresses to the area frequently during the day. You should keep your head elevated. While the antibiotic ointment (erythromycin eye ointment) to the left eye 4 times a day for the next 5 days. You also need to be on an oral antibiotic to treat for this infection as well. I have placed you on Keflex which is an antibiotic that should treat the infection. I have also given you a prescription for yeast infection medicine that you should take if you begin to develop symptoms of a yeast infection. I do recommend that he follow-up with your eye doctor. Back to the emergency department for fever, redness that spreads around the entire orbit area, increasing pain, vision problems or any other concerning signs or symptoms. Sepsis Event Note (ED) - Evaluation Sepsis Screening Result: No Definite Risk
[2021-01-25] MEDS: Amoxicillin/Clavulanate K 875-125 MG Tab PO ONE ×2 (18:42→18:45)
[2021-01-25] MEDS ORDERED: Cephalexin 250 MG Cap PO ONE (18:47)
== END 2021-01-25 19:00 | disposition home or self-care (01) ==
LOC: FB.ED 17:48
DX: H04.302 Unspecified dacryocystitis of left lacrimal passage (principal); E11.9 Type 2 diabetes mellitus without complications; E66.9 Obesity, unspecified; Z68.30 Body mass index [BMI] 30.0-30.9, adult; Z91.040 Latex allergy status
CPT/HCPCS: 99283; A9270

== ENCOUNTER 2022-08-15 14:35 | Emergency (ER) | payer BC ==
[2022-08-15] MEDS ORDERED: Iopamidol 755 Mg/ML 100 ML Bottle IV ONE (15:17)
[2022-08-15 15:57] LABS: ESTIMATED GFR 106 mL/min (>60)
[2022-08-15] MEDS ORDERED: cefTRIAXone 2 GM Vial IVPUSH ONE (16:39)
[2022-08-15] MEDS ORDERED: Morphine 4 MG/ML VIAL IVPUSH ONE (17:14)
[2022-08-15] MEDS ORDERED: Ondansetron 4 MG/2 ML SDV IVPUSH ONE (17:14)
== END 2022-08-15 17:45 ==
LOC: FB.ED 14:35
DX: T81.40XA Infection following a procedure, unspecified, initial encounter (principal); L02.211 Cutaneous abscess of abdominal wall; D64.9 Anemia, unspecified; R79.82 Elevated C-reactive protein (CRP); K21.9 Gastro-esophageal reflux disease without esophagitis; E11.9 Type 2 diabetes mellitus without complications; E66.9 Obesity, unspecified; Z68.30 Body mass index [BMI] 30.0-30.9, adult; Z91.040 Latex allergy status; Z79.899 Other long term (current) drug therapy
CPT/HCPCS: 36415; 74177; 80053; 83605; 85025; 86140; 87040; 96374; 96375; 99283; J0696; J2270; J2405; Q9967